=== PATIENT | male | born 1940 | race Caucasian/White ===

== ENCOUNTER 2024-05-26 07:29 | Day surgery (SDC) | payer MEDICARE, SELFPAY ==
[2024-05-23 11:05] VITALS: BMI 25.1
--- NOTE | 2024-05-24 13:51 | EKG_ITS ---
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
[2024-05-24 15:23] LABS: Basophils # (Auto) 0.1 Thou/mm3 (0.0-0.2); Basophils % (Auto) 1 % (0-2.5); Eosinophils # (Auto) 0.2 Thou/mm3 (0.0-0.5); Eosinophils % (Auto) 2 % (0-10); Hemoglobin 13.7 g/dL (13.5-16.0); Immature Granulocytes % (Auto) 0 % (0-0); Immature Granulocytes Auto 0.02 Thou/mm3 (0.00-0.00); Lymphocytes # (Auto) 2.5 Thou/mm3 (1.0-4.8); Lymphocytes % (Auto) 30 % (10-50); Mean Corpuscular HGB Conc 31.9 g/dl (31.0-37.0); Mean Corpuscular Hemoglobin 29.8 pg (25.0-35.0); Mean Corpuscular Volume 94 fL (80-100); Monocytes # (Auto) 0.8 Thou/mm3 (0.0-0.8); Monocytes % (Auto) 9 % (0-12); Neutrophils % (Auto) 59 % (37-80); Nucleated Red Blood Cell % 0 /100 WBC (0); Platelet Count 204 Thou/mm3 (140-440); RDW Standard Deviation 45.7 fL (35.1-43.9); White Blood Count 8.5 Thou/mm3 (3.8-10.6)
[2024-05-24 15:28] LABS: INR 1.1 (0.9-1.3); Partial Thromboplastin Time 26.8 Seconds (22.0-36.0); Prothrombin Time 11.8 Seconds (9.0-12.2)
[2024-05-24 15:30] LABS: Anion Gap 5 (7-16); BUN/Creatinine Ratio 21 Ratio (12-20); Blood Urea Nitrogen 39 mg/dL (9-23); Calcium 10.3 mg/dL (8.3-10.6); Chloride 108 mMol/L (98-107); Creatinine (Component) 1.9 mg/dL (0.6-1.3); Estimated Creatinine Clearance 31.4 mL/min (>60); Glucose 130 mg/dL (74-106); Osmolality,Calculated 294 (275-295); Potassium 4.4 mMol/L (3.4-5.1); Sodium 142 mMol/L (136-145); eGFR 35 See Note
[2024-05-26] VITALS (12 sets, daily range): BP systolic 113–141; BP diastolic 63–82; PULSE 52–70; RESP 14–16; TEMP 36.2–37; O2SAT 95–100; BMI 25.8
[2024-05-26] MEDS: SODIUM CHLORIDE 0.45 % 500 ML 100 ML IV (08:11)
--- NOTE | 2024-05-26 09:12 | PC.NURSE ---
0853 patient awake alert, breathing unlabored, s/p [facility] by dr prakash, report received from Charlie DIEHL [id number] Report given to Charlie DIEHL
--- NOTE | 2024-05-26 09:52 | ESOP_ITS ---
RE: SYDNI MCGREGOR : 1940 DATE OF OPERATION: 05/26/2024 PROCEDURE PERFORMED: 1. Diagnostic left heart cardiac catheterization, selective coronary angiogram, left ventricular angiogram, CPT 63619. 2. Conscious sedation for 30-minute duration. 3. Ultrasound-guided access of the right radial artery. DIAGNOSIS: Coronary artery disease status post stent placement, angina pectoris, abnormal stress test. HISTORY AND INDICATIONS: The patient is an 84-year-old male with a history of CAD, previous stent placement, hypertension, CKD stage III, has been having recurrent shortness of breath and exertion. Cardiac stress and nuclear scan is abnormal. Hence coronary angiogram was recommended to assess the patient is a candidate for coronary intervention and revascularization. DESCRIPTION OF PROCEDURE: The patient was brought to cardiac catheterization laboratory where he was only given 1 mg of Versed and 50 mcg of fentanyl for sedation. The right radial approach was taken. The right radial artery was cannulated with micropuncture technique. A 6-I[place]ic Gl[place]ath was introduced. Selective right and left coronary angiogram was performed by TIG-4 5-Icelandic diagnostic catheter. Left heart catheterization, LV angiogram performed by TIG-4 diagnostic catheter. Radial cocktail was given consisting of nitroglycerin and 2000 heparin. The patient tolerated the procedure well. There were no complications. Coronary angiogram showed following findings. Right coronary artery large and dominant, showed no significant stenosis. Left coronary system: Left main coronary artery is normal. Left anterior descending artery showed stent in the mid segment, widely patent. No significant restenosis. Circumflex artery is patent. Left ventricular pressure recorded 100/10, EDP 14, aortic pressure 100/56. No gradient across the aortic valve. Left ventricular angiogram showed normal left ventricular wall motion. Ejection fraction 60%. SUMMARY OF FINDINGS AND SUGGESTIONS: 1. Nonobstructive epicardial coronary arteries. 2. Widely patent stent involving mid LAD. 3. Normal left ventricular function. RECOMMENDATIONS: The patient is reassured with the absence of significant obstructive coronary artery disease. Prognosis is excellent. Continue medical management. Total amount of contrast is only 20 mL. cc: Ericka Parikh MD DT: 09:01:38 TT: 09:40:00 Ref: [id number] - TID: [id number]
== END 2024-05-26 11:30 | disposition home or self-care (01) ==
PROVIDERS: PCP Family Medicine; Referring Provider Internal Medicine Cardiovascular Disease; Visit Provider Internal Medicine Cardiovascular Disease
PROC: (CPT 93458; principal; 2024-05-26 07:30)
DX: I25.118 Atherosclerotic heart disease of native coronary artery with other forms of angina pectoris (principal); I12.9 Hypertensive chronic kidney disease with stage 1 through stage 4 chronic kidney disease, or unspecified chronic kidney disease; Z95.5 Presence of coronary angioplasty implant and graft; E11.22 Type 2 diabetes mellitus with diabetic chronic kidney disease; N18.31 Chronic kidney disease, stage 3a
CPT/HCPCS: 93458; 36415; 80048; 85025; 85610; 85730; 93005; 99152; A4216; A4649; C1769; C1887; C1894; J0171; J0461; J0583; J1643; J2250; J2310; J2371; J3010; J3490; J7040; Q9967; J2305

== ENCOUNTER → 2024-06-30 | Outpatient (CLI) | payer MEDICARE, BC, SELFPAY ==
--- NOTE | 2024-06-30 16:51 | XR_ITS ---
Examination: Foot, left, 3 views Technique: AP, oblique, lateral views foot, 3 views Date and time of exam: June 30, 2024 1733 hrs. Indications: Left foot pain this week Findings: Severe osteopenia Pes planus No acute fracture Moderate osteoarthritis first metatarsophalangeal joint Mild osteoarthritis interphalangeal joints and intertarsal joints No avascular necrosis No cortical bone destruction Impression: Severe osteopenia Osteoarthritis as above
== END | disposition home or self-care (01) ==
PROVIDERS: PCP Family Medicine; Referring Provider Family Medicine; Visit Provider Family Medicine
DX: M85.872 Other specified disorders of bone density and structure, left ankle and foot (principal); M19.072 Primary osteoarthritis, left ankle and foot
CPT/HCPCS: 73630

== ENCOUNTER → 2024-07-27 | Outpatient (CLI) | payer MEDICARE, BC, SELFPAY ==
--- NOTE | 2024-07-27 11:30 | XR_ITS ---
Examination: Retroperitoneal ultrasound, complete Technique: Multiple high resolution grayscale images of the retroperitoneum obtained, including kidneys and bladder. Exam date and time:July 27, 2024 1137 hours INDICATIONS: Diagnosis acute renal failure on laboratory examination May 24, 2024 FINDINGS: Right kidney 14.7 cm cortex 1.8 cm Lower pole 5.2 cm cyst Left kidney 9.6 cm renal cortex 1.4 cm Upper pole 6.9 cm cyst No hydronephrosis No bladder mass or bladder calculi, bladder prevoid volume 512 cc postvoid volume 51 cc Prostate volume 37 cc no prostate nodules IMPRESSION: Small left kidney Bilateral renal cortical thinning No hydronephrosis
== END | disposition home or self-care (01) ==
PROVIDERS: PCP Internal Medicine; Referring Provider Internal Medicine; Visit Provider Internal Medicine
DX: N28.89 Other specified disorders of kidney and ureter (principal)
CPT/HCPCS: 76770

== ENCOUNTER → 2024-08-09 | Outpatient (CLI) | payer MEDICARE, BC, SELFPAY ==
--- NOTE | 2024-08-09 13:00 | XR_ITS ---
Examination: Nuclear medicine kidney imaging flow and function multiple studies Exam date and time: August 09, 2024 1807 hours INDICATIONS: Chronic kidney disease stage III, small left kidney on renal sonogram July 27, 2024 TECHNIQUE AND FINDINGS: Intravenous administration 10.6 mCi technetium 99m MAG3 flow and function curves generated to 60 minutes Normal flow and function both kidneys IMPRESSION: Normal flow and function both kidneys
== END | disposition home or self-care (01) ==
LOC: SNUC 12:31
PROVIDERS: PCP Internal Medicine; Referring Provider Internal Medicine; Visit Provider Internal Medicine
DX: N17.9 Acute kidney failure, unspecified (principal)
CPT/HCPCS: 78709; A9562

== ENCOUNTER → 2024-08-19 | Outpatient (CLI) | payer MEDICARE, BC, SELFPAY ==
[2024-08-19 09:15] LABS: Collection Type, Urine Clean Catch
[2024-08-19 09:47] LABS: Bilirubin,Urine Negative (Negative); Blood,Urine Negative (Negative); Clarity,Urine Clear (Clear/Hazy); Color,Urine Lt-Yellow (Lt Yel-Yel); Glucose, Urine Negative (Negative); Ketones,Urine Negative (Negative); Leukocyte Esterase,Urine Negative (Negative); Nitrite,Urine Negative (Negative); Protein,Urine Trace (Neg - Trace); RBC,Urine 2 /hpf (0-3); Specific Gravity,Urine 1.019 (1.001-1.035); Squamous Epithelial Cell,Urine < 1 /hpf (0-5); Urobilinogen,Urine Negative mg/dL (0.0-1.0); WBC,Urine < 1 /hpf (0-5)
[2024-08-19 10:17] LABS: Albumin, Serum 4.3 gm/dL (3.4-4.8); Anion Gap 11 (7-16); BUN/Creatinine Ratio 33 Ratio (12-20); Blood Urea Nitrogen 66 mg/dL (9-23); Calcium 10.2 mg/dL (8.3-10.6); Calcium (Corrected) 10.2 mg/dL (8.5-10.1); Carbon Dioxide 28.3 mMol/L (20.0-31.0); Chloride 106 mMol/L (98-107); Glucose 101 mg/dL (74-106); Osmolality,Calculated 307 (275-295); Phosphorous 3.4 mg/dL (2.4-5.1); Potassium 4.2 mMol/L (3.4-5.1); Sodium 145 mMol/L (136-145); eGFR 33 See Note
[2024-08-19 10:20] LABS: Creatinine MALB Rnd Ur 89 mg/dL (30-125); Microalbumin Creat Ratio 91 mg/gCrea (<30); Microalbumin, Random Urine 81 mg/L (0-300)
[2024-08-19 11:43] LABS: Parathyroid Hormone Intact 111.5 pg/ml (18.5-88.0)
[2024-08-19 11:54] LABS: Vitamin D 25 Hydroxy Total 40.6 ng/mL (7.3-40.2)
== END | disposition home or self-care (01) ==
LOC: COPL 08:47
PROVIDERS: PCP Internal Medicine; Referring Provider Internal Medicine; Visit Provider Internal Medicine
DX: H17.9 Unspecified corneal scar and opacity (principal); N18.32 Chronic kidney disease, stage 3b
CPT/HCPCS: 36415; 80069; 81001; 82043; 82306; 82570; 83970